=== PATIENT | female | born 1970 | race Native Hawaiian/Other Pacific Islander ===

== ENCOUNTER 2018-11-13 21:18 | Emergency (ER) | payer BC ==
[2018-11-13] MEDS ORDERED: HYDROcodone/Acetaminophen 5/325 mg Tablet ONE (21:32)
[2018-11-13] MEDS ORDERED: Ondansetron ODT 4 MG TAB ONE (21:32)
--- NOTE | 2018-11-13 22:06 | RAD ---
LEFT FEMUR TWO VIEWS: 11/13/18 HISTORY: Trauma, left lower extremity pain. FINDINGS/IMPRESSION: The left femur is intact. POS: [facility]
--- NOTE | 2018-11-13 22:06 | RAD ---
LEFT KNEE FOUR VIEWS: 11/13/18 HISTORY: Injury, left knee pain. FINDINGS/IMPRESSION: No acute fracture or dislocation is identified. POS: [facility]
== END 2018-11-13 23:04 | disposition home or self-care (01) ==
LOC: ERS 21:18
DX: S80.12XA Contusion of left lower leg, initial encounter (principal); W20.8XXA Other cause of strike by thrown, projected or falling object, initial encounter
CPT/HCPCS: Q0162

== ENCOUNTER 2022-07-16 14:19 | Outpatient (CLI) | payer BC | END 2022-07-16 14:20 | disposition home or self-care (01) | LOC: BICMAMMO 14:19 | PROVIDERS: ATTEND Family Medicine Sports Medicine | DX: N63.21 Unspecified lump in the left breast, upper outer quadrant (principal) | CPT/HCPCS: 77066; G0279 ==